=== PATIENT | male | born 1985 | race Two or more races ===

== ENCOUNTER 2021-02-15 10:24 | Inpatient (IN) | payer MEDICAID, OTHER ==
[~2021-02-15] VITALS: Ht 205.7 cm; Wt 99.7 kg
[2021-02-15] MEDS ORDERED: ASPirin 81 mg TAB PO ONE (11:00)
[2021-02-15 11:06] LABS: Basophils # (auto) 0.1 10 ^3/uL (0-0.2); Basophils % (auto) 0.9 % (0.0-2.0); Eosinophils # (auto) 0.2 10 ^3/uL (0-0.8); Eosinophils % (auto) 3.3 % (0.0-7.0); Hematocrit 46.1 % (41.0-53.0); Hemoglobin 16.1 g/dL (13.5-17.5); Lymphocytes # (auto) 1.4 10 ^3/uL (0.4-5.4); Lymphocytes % (auto) 24.2 % (10.0-50.0); Mean Corpuscular Hemoglobin 30.7 pg (28.0-32.0); Mean Corpuscular Volume 87.8 fL (80.0-100.0); Monocytes # (auto) 0.6 10 ^3/uL (0-1.3); Monocytes % (auto) 10.9 % (0.0-12.0); Neutrophils # (auto) 3.5 10 ^3/uL (1.6-8.6); Neutrophils % (auto) 60.7 % (37.0-80.0); Nucleated Red Blood Cells % 0.3 %; Red Blood Cells 5.25 10^6/uL (4.5-5.90); White Blood Cell 5.8 10^3/uL (4.4-10.8)
[2021-02-15 11:39] LABS: INR 0.99 (0.9-1.15); Partial Thromboplastin Time 28.8 sec (23.0-31.2)
[2021-02-15 11:41] LABS: Albumin 3.6 g/dL (3.4-5.0); Anion Gap 6 (5-15); Blood Urea Nitrogen 14 mg/dL (7-18); Calcium 8.7 mg/dL (8.5-10.1); Carbon Dioxide 24 mmol/L (21-32); Chloride 110 mmol/L (98-107); Glucose 94 mg/dL (74-106); Magnesium 2.3 mg/dL (1.6-2.6); Potassium 4.1 mmol/L (3.5-5.1); Sodium 140 mmol/L (136-145)
[2021-02-15 11:47] LABS: Alanine Aminotransferase 51 U/L (16-61); Alkaline Phosphatase 111 U/L (45-117); Aspartate Aminotransferase 56 U/L (15-37); BUN/Creatinine Ratio 17.1; Bilirubin, Total 0.4 mg/dL (0.2-1.0); GFR African American 136 mL/min; GFR Non-African American 112 mL/min; Total Protein 7.5 g/dL (6.4-8.2)
[2021-02-15 11:53] VITALS: BP 147/95
[2021-02-15 13:00] LABS: Urine Bacteria FEW /hpf (None Seen); Urine Blood Negative /uL (Negative); Urine Mucus FEW (None Seen); Urine Specific Gravity 1.028 (1.001-1.035); Urine Sperm PRESENT /hpf (None Seen); Urine WBC 1 /hpf (0 - 3)
[2021-02-15 13:15] LABS: Alcohol, Urine < 3.0 mg/dL (0-10); Amphetamine Screen, Urine NEGATIVE (NEGATIVE); Barbiturate Scree,Urine NEGATIVE (NEGATIVE); Benzodiazephine Screen, Urine NEGATIVE (NEGATIVE); Cannabinoid Screen, Urine NEGATIVE (NEGATIVE); Cocaine Screen, Urine NEGATIVE (NEGATIVE); Opiate Scree,Urine NEGATIVE (NEGATIVE); Phencyclidine Screen, Urine NEGATIVE (NEGATIVE)
[2021-02-15] MEDS ORDERED: IOHEXOL 350 MG/ML 100ML IJ ONE (13:58)
[2021-02-15] MEDS ORDERED: cefTRIAXone 1GM/50ML D5W 50 ML IV ONE (15:45)
[2021-02-15] MEDS ORDERED: ONDANSETRON HCL 4 MG/2 ML VIAL IV PRN (16:45)
[2021-02-15] MEDS ORDERED: HYDROcodone-ACET 5/325MG TAB PO PRN (16:45)
[2021-02-15] MEDS ORDERED: MORPHINE SULFATE INJECTION 2 MG/ML SYRG IV PRN ×2 (16:45)
[2021-02-15] MEDS ORDERED: NITROGLYCERIN 0.4 MG SL TAB SL PRN (16:45)
[2021-02-15 16:57] VITALS: BP 124/81
[2021-02-15] MEDS: SUCRALFATE 1 GM/10 ML ORAL SUSP PO SCH (17:00)
[2021-02-15] MEDS: DOXYCYCLINE 100MG/250ML 250 ML IV SCH (17:12)
[2021-02-15 17:18] LABS: Cholesterol 206 mg/dL (< 200); Lipase 88 U/L (73-393)
[2021-02-15 17:21] LABS: HDL Cholesterol 45 mg/dL (40-59); LDL Cholesterol 136 mg/dL (< 100); Triglycerides 181 mg/dL (< 150)
[2021-02-15] MEDS: BUDESONIDE (INHALATION) 0.5 MG/2 ML NEB NEB SCH (18:14)
[2021-02-15] MEDS: FAMOTIDINE 20 MG TAB PO SCH (23:05)
[2021-02-16] VITALS (7 sets, daily range): BP systolic 129–147; BP diastolic 81–96
[2021-02-16] MEDS ORDERED: [UNRECOGNIZED DRUG - CODE] PO (05:23)
[2021-02-16] MEDS ORDERED: MIRT-66 PO (05:23)
[2021-02-16] MEDS: SUCRALFATE 1 GM/10 ML ORAL SUSP PO SCH ×3 (06:19→17:14)
[2021-02-16] MEDS: BUDESONIDE (INHALATION) 0.5 MG/2 ML NEB NEB SCH ×2 (09:57→21:56)
[2021-02-16] MEDS ORDERED: ASPirin 81 mg TAB PO SCH (10:00)
[2021-02-16] MEDS: FAMOTIDINE 20 MG TAB PO SCH ×2 (10:28→21:20)
[2021-02-16] MEDS: DOXYCYCLINE 100MG/250ML 250 ML IV SCH ×2 (10:28→21:19)
[2021-02-16] MEDS ORDERED: PANTOPRAZOLE 40 MG TAB PO ONE (17:45)
[2021-02-16] MEDS ORDERED: SUCR1SUS5 PO (18:19)
[2021-02-16] MEDS ORDERED: DOXY-286 PO (18:19)
[2021-02-16] MEDS ORDERED: PANT40TA2 PO (18:19)
[2021-02-16] MEDS ORDERED: PANTOPRAZOLE 40 MG TAB PO SCH (22:00)
[2021-02-17 05:00] VITALS: BP 125/79
[2021-02-17] MEDS: SUCRALFATE 1 GM/10 ML ORAL SUSP PO SCH (06:33)
[2021-02-17] MEDS: BUDESONIDE (INHALATION) 0.5 MG/2 ML NEB NEB SCH (07:19)
[2021-02-17 08:00] VITALS: BP 96/53
[2021-02-17 08:41] VITALS: BP 135/89
[2021-02-17 09:00] VITALS: BP 135/89
== END 2021-02-17 09:46 | disposition home or self-care (01) | DRG 243 ==
LOC: EDBD 10:24 → ER 10:24 → TELE 16:34 → TELE-CENTR 23:29
PROVIDERS: ADMIT Hospitalist; ATTEND Hospitalist
DX: K21.9 Gastro-esophageal reflux disease without esophagitis (principal); J69.0 Pneumonitis due to inhalation of food and vomit; Z20.822 Contact with and (suspected) exposure to COVID-19; F10.20 Alcohol dependence, uncomplicated; F32.9 Major depressive disorder, single episode, unspecified; F41.9 Anxiety disorder, unspecified; Z82.49 Family history of ischemic heart disease and other diseases of the circulatory system; Z79.899 Other long term (current) drug therapy; Z79.891 Long term (current) use of opiate analgesic; Z79.01 Long term (current) use of anticoagulants; Z79.82 Long term (current) use of aspirin
CPT/HCPCS: 36415; 71045; 71275; 80053; 80061; 80307; 81001; 83036; 83605; 83690; 83735; 83880; 84484; 85025; 85379; 85610; 85730; 87040; 87426; 93005; 93306; 94640; 96365; 96367; G0378; J0696; J3490